=== PATIENT | male | born 1985 | race Caucasian/White ===

== ENCOUNTER 2021-09-20 13:32 | Emergency (ER) | payer BC, SELFPAY ==
[2021-09-20 13:37] VITALS: BP 133/82; PULSE 75; RESP 16; TEMP 36.4; O2SAT 100
--- NOTE | 2021-09-20 14:01 | ED.GENADULT ---
HPI - General Adult General Chief complaint: Upper Respiratory Infection Stated complaint: sore throat Source: patient Mode of arrival: ambulatory Limitations: no limitations History of Present Illness HPI narrative: Patient presents for evaluation of upper respiratory symptoms. On Tuesday of last week he had sinus congestion, and yellow nasal drainage. Yesterday he developed a nonproductive cough and sore throat. He denies fever, chills, nausea, vomiting, abdominal pain, diarrhea and body aches. No recent sick contacts to his knowledge. He had been using flonase last week but has not used it today. He drove here from [place] to visit his parents for Thanksgiving. He came here for further evaluation as he did not want to expose them to COVID in the event that he had it. He has been fully vaccinated for COVID. No additional complaints or concerns. Related Data Home Medications Medication Instructions Recorded Confirmed lamotrigine 100 mg PO BID 09/20/21 09/20/21 Allergies Allergy/AdvReac Type Severity Reaction Status Date / Time No Known Allergies Allergy Verified 09/20/21 13:37 Review of Systems Review of Systems: CONSTITUTIONAL: Denies fever, chills, or sweats. EYES: Denies visual changes, redness, or discharge. ENT: Reports sinus congestion and drainage. Denies otalgia. CARDIOVASCULAR: Denies chest pain, palpitations, or edema. RESPIRATORY: Reports cough. Denies dyspnea. GASTROINTESTINAL: Denies abdominal pain, nausea, vomiting, or diarrhea. GENITOURINARY: Denies dysuria or hematuria. SKIN: Denies rash or itching. MUSCULOSKELETAL: Denies back pain, joint pain, or myalgia. NEUROLOGIC: Denies headache, numbness, dizziness, or weakness. PSYCHIATRIC: Denies anxiety or depression. [facility] Past Medical History Medical History (Updated 09/20/21 @ 15:03 by KENISHA Campbell, HECTOR) No pertinent past medical history Surgical History Surgical History No pertinent past surgical history Family History Family History Mother Diabetes mellitus Obesity Social History Social History Smoking status: Never smoker Alcohol intake: current Alcohol use details: social Substance use: never Living arrangements: alone Gender identity (if verbalized by the patient): Male Spiritual care concerns: No Exam Narrative: GENERAL: Well-appearing, well-nourished, and in no acute distress. HEAD: Normocephalic, atraumatic. EYES: PERRLA and EOMI. ENT: Nares clear, no rhinorrhea or epistaxis. Mucous membranes moist. Oropharynx without tonsillar hypertrophy exudate or other lesions. Bilateral TMs pearly reyna nonbulging NECK: Supple. No adenopathy or masses. No carotid bruits or JVD CHEST: Clear to auscultation. No respiratory distress. No wheezes rales or rhonchi HEART: Regular rate and rhythm. No murmur heard. Normal peripheral pulses. ABDOMEN: Soft, nontender, nondistended, normal active bowel sounds. EXTREMITIES: Normal range of motion. No edema. SKIN: Warm, dry, no rash. NEURO: No focal deficits. Alert and oriented x3. PSYCH: Normal mood and affect. Course Course Emergency Course: This is a 36-year-old male that presented with complaints of respiratory symptoms. His Covid swab and strep were both negative. I offered to check CXR which he declined. He is non-toxic appearing. VSS. Exam consistent with viral URI. Advised on which OTC therapies may be effective. Increase hydration and follow up next week for further evaluation. Return for worsening symptoms. Pt in agreement with plan of care. Vital Signs Vital signs: Vital Signs Temperature 36.4 C 09/20/21 13:37 Pulse Rate 75 09/20/21 13:37 Respiratory Rate 16 09/20/21 13:37 Blood Pressure 133/82 09/20/21 13:37 Pulse Oximetry 100 09/20/21 13:37
== END 2021-09-20 15:06 | disposition home or self-care (01) ==
PROVIDERS: Emergency Provider Nurse Practitioner
DX: J06.9 Acute upper respiratory infection, unspecified (principal); Z20.822 Contact with and (suspected) exposure to COVID-19
CPT/HCPCS: 87081; 87426; 87880; 99213; C9803; G0463